=== PATIENT | female | born 1965 | race African-American/Black ===

== ENCOUNTER 2016-06-05 08:34 | Day surgery (SDC) | payer OTHER ==
[~2016-06-05] VITALS: Ht 160 cm; Wt 96.2 kg
[~2016-06-05 08:34] MED LIST: AMLO10TA2 PO; CEFAZOLIN 1GM IVPB FOR OMNI 50 ML IV ONE; FENTANYL PF 100 MCG/2 ML VIAL. IV PRN; IV RINGERS,LACTATED 1000ML 1,000 ML IV SCH; LIDOCAINE 1% 1 ML SYRINGE. ID PRN; LOSA1TAB17 PO; MELO-156 PO; ONDANSETRON PF 4 MG/2 ML VIAL. IV PRN; PROCHLORPERAZINE 10 MG/2 ML VIAL. IV PRN; RANI150T2 PO
[2016-06-05] MEDS ORDERED: ORPH100T PO (09:15)
[2016-06-05] MEDS ORDERED: MIDAZOLAM HCL 2 MG/2 ML VIAL. ONE (09:46)
[2016-06-05] MEDS ORDERED: FENTANYL PF 100 MCG/2 ML VIAL. ONE (09:46)
[2016-06-05] MEDS ORDERED: LIDOCAINE 1% PF 30 ML VIAL. ONE ×2 (09:48→10:14)
--- NOTE | 2016-06-05 10:08 | DISCH ---
DISCHARGE INSTRUCTIONS Condition on Discharge Condition on Discharge: Stable Activity After Discharge Activity Instructions for Disc: Activity as tolerated Bathing Instructions: Shower-keep dressing dry Lifting Instructions after Dis: No heavy lifting, No pulling or pushing, Do not lift >10 pounds Weight Bearing Status after Di: As tolerated Diet after Discharge Diet after Discharge: Regular Wound Incision Care Wound/Incision Care: Ice to area for comfort, Keep wound/cast CDI, Keep wound elevated, Change dressing Contacting the DR. after DC Call your doctor for: Concerns you may have Follow-Up Follow up with: Octavio in 2wks Treatment/Equipment after DC Adaptive Equipment Issued: None MARIA L DENNIS II, MD Jun 05, 2016 10:08
--- NOTE | 2016-06-05 10:09 | PDOC ---
BRIEF OPERATIVE NOTE Date: Jun 05, 2016 Pre-Op Diagnosis R 1st and 3rd TF Post-Op Diagnosis same Procedure Performed Open R 1st and 3rd TF release Surgeon Octavio Anesthesia Type: General MARIA L DENNIS II, MD Jun 05, 2016 10:09
[2016-06-05] MEDS ORDERED: BUPIVACAINE MPF 0.5% 30 ML VIAL. ONE (10:14)
[2016-06-05] MEDS ORDERED: DEXAMETHASONE SOD PHOS 20 MG/5 ML VIAL. ONE (10:18)
[2016-06-05] MEDS ORDERED: ONDANSETRON PF 4 MG/2 ML VIAL. ONE (10:18)
[2016-06-05] MEDS ORDERED: PROPOFOL 20 ML IV ONE (10:18)
[2016-06-05] MEDS ORDERED: LIDOCAINE 2% 100 MG/5 ML DISP.SYRIN. ONE (10:18)
[2016-06-05] MEDS ORDERED: SEVOFLURANE 31 TO 60 MINUTES. IH ONE (10:40)
[2016-06-05] MEDS: FENTANYL PF 100 MCG/2 ML VIAL. IV PRN ×4 (11:01→11:19)
[2016-06-05] MEDS: MORPHINE SULFATE 2 MG/ML DISP.SYRIN. IV PRN ×4 (11:22→12:08)
[2016-06-05] MEDS ORDERED: HYDR-971 PO (11:25)
[2016-06-05] MEDS ORDERED: DOCU-27 PO (11:27)
[2016-06-05] MEDS ORDERED: HYDROCODONE/APAP 5/325MG TABLET. PO PRN (11:30)
[2016-06-05] MEDS ORDERED: OXYCODONE/APAP 5/325 TABLET. PO PRN (12:15)
[2016-06-05 12:34] VITALS: BP 141/88
--- NOTE | 2016-06-05 13:23 | OP ---
DATE OF SURGERY: 06/05/2016 SURGEON: Juan Dennis MD BOLT LOADER: None. ANESTHESIA: General with an LMA. PREOPERATIVE DIAGNOSIS: Right hand first and third trigger finger. POSTOPERATIVE DIAGNOSIS: Right hand first and third trigger finger. PROCEDURE PERFORMED: Open right first and third trigger finger release. COMPLICATIONS: None. ESTIMATED BLOOD LOSS: 5 mL. TOURNIQUET TIME: 18 minutes. REASON FOR PROCEDURE: This is a very pleasant 50-year-old female with painful catching of digits 1 and 3 on her right hand. She had tried corticosteroid injections, which gave her good initial relief, but no long term relief. Therefore, we had discussion of risks, benefits, alternatives of proceeding with the above surgery and she elected to proceed. DESCRIPTION OF PROCEDURE: The patient was greeted in the preoperative area by myself. Correct extremity was marked and verified. She was taken back to the operative suite and antibiotics started en route. Once in the OR, transferred gently supine to the OR table with an arm board attached. She had successful induction of general anesthesia with an LMA, as her preference was to be asleep for the surgery. We then proceeded to prep and drape the right upper extremity after applying a nonsterile tourniquet to her right arm. After prepping and draping, conducted a standard preoperative timeout. I then made a transverse incision over the proximal aspect of her metacarpal head at her third digit and dissected subcutaneous tissue with a tenotomy until identified the A1 jose luis and accounting assistant held Ragnell retractors in place. I then released the A1 jose luis with the tenotomy incisions and then delivered the tendons from the incision with a curved hemostat to ensure accomplished full release. I then directed my attention to the thumb and made a transverse incision again over the base of the metatarsal or metacarpal head and dissected with tenotomy down to the flexor tendon. The digital nerve was several millimeters away. I did identify and protected with my Ragnell retractor throughout this procedure. I did use bipolar cautery to cauterized couple of bleeders. After identifying the jose luis, I incised this with tenotomy incision as well and then again delivered the tendons from the incision to ensure a complete release. After this, I irrigated out the incisions and closed skin with 3-0 nylon in a mattress fashion at both incisions. A Xeroform, sterile gauze, sterile cast padding and Jay wrap were applied to the patient's right hand and wrist. She was then awakened from anesthesia and the tourniquet was let down. She tolerated surgery well. No complications. At the conclusion of surgery, she was transferred gently supine to the hospital recovery room cart and taken to PACU in stable and extubated condition. Postop plan is for to wiggle her fingers frequently keep her and elevated. She will be nonweightbearing. We will see her back in clinic in 2 weeks, sooner should problems arise. JUAN DENNIS MD DR: DANIEL/odessa JOB#: [id number] / [id number]
== END 2016-06-05 13:06 | disposition home or self-care (01) ==
LOC: SURG 08:34
PROVIDERS: ATTEND Orthopaedic Surgery Sports Medicine
DX: M65.311 Trigger thumb, right thumb (principal); M65.331 Trigger finger, right middle finger; I10 Essential (primary) hypertension; Z98.51 Tubal ligation status; Z90.710 Acquired absence of both cervix and uterus
CPT/HCPCS: 26055; J0690; J1100; J2250; J2270; J2405; J2704; J3010; J3490

== ENCOUNTER 2017-09-29 06:24 | Day surgery (SDC) | payer BC, OTHER ==
[2017-09-29] MEDS: IV RINGERS,LACTATED 1000ML 1,000 ML IV (06:59)
[2017-09-29] MEDS ORDERED: fentaNYL PF VIAL 100 MCG/2 ML VIAL IV ×2 (07:00)
[2017-09-29] MEDS ORDERED: LIDOCAINE 1% PF 2 ML VIAL. ID (07:00)
[2017-09-29] MEDS ORDERED: ONDANSETRON PF 4 MG/2 ML VIAL. IV (07:00)
[2017-09-29] MEDS ORDERED: PROCHLORPERAZINE 10 MG/2 ML VIAL. IV (07:00)
[2017-09-29] MEDS ORDERED: KETOROLAC 30 MG/ML INJ FOR OR. INJ (07:02)
[2017-09-29] MEDS ORDERED: DEXAMETHASONE SOD PHOS 20 MG/5 ML VIAL. (07:02)
[2017-09-29] MEDS ORDERED: PROPOFOL 20 ML IV (07:02)
[2017-09-29] MEDS ORDERED: ONDANSETRON PF 4 MG/2 ML VIAL. (07:02)
[2017-09-29] MEDS ORDERED: FAMOTIDINE 20 MG/2 ML VIAL (07:02)
[2017-09-29] MEDS ORDERED: LIDOCAINE 2% PF Vial for OR 5 ML VIAL. (07:02)
[2017-09-29] MEDS ORDERED: MIDAZOLAM HCL/PF 2 MG/2 ML VIAL. (07:03)
[2017-09-29] MEDS ORDERED: ESMOLOL 100 MG/10 ML VIAL. IV (07:40)
[2017-09-29] MEDS: LIDOCAINE 1% PF 30 ML VIAL. (07:47)
[2017-09-29] MEDS: BUPIVACAINE MPF 0.5% 30 ML VIAL. (07:47)
[2017-09-29] MEDS ORDERED: DESFLURANE 31 TO 60 MINUTES IH (08:01)
[2017-09-29] MEDS: HYDROcodone/APAP 5/325MG 1 TAB TABLET PO (09:01)
== END 2017-09-29 09:23 | disposition home or self-care (01) ==
LOC: SURG 06:24
DX: M65.341 Trigger finger, right ring finger (principal); M65.351 Trigger finger, right little finger; I10 Essential (primary) hypertension; K21.9 Gastro-esophageal reflux disease without esophagitis; E66.9 Obesity, unspecified; M17.11 Unilateral primary osteoarthritis, right knee; Z79.1 Long term (current) use of non-steroidal anti-inflammatories (NSAID); Z79.899 Other long term (current) drug therapy; Z98.51 Tubal ligation status; Z90.712 Acquired absence of cervix with remaining uterus; Z98.890 Other specified postprocedural states
CPT/HCPCS: 26055; A7015; J0690; J1100; J1885; J2250; J2405; J2704; J3490; S0028

== ENCOUNTER → 2017-11-05 | Outpatient (CLI) | payer OTHER | END | disposition home or self-care (01) | LOC: KCIC US 15:06 | DX: E04.1 Nontoxic single thyroid nodule (principal); I10 Essential (primary) hypertension; K21.9 Gastro-esophageal reflux disease without esophagitis; E66.9 Obesity, unspecified | CPT/HCPCS: 76536 ==

== ENCOUNTER → 2018-11-04 | Outpatient (CLI) | payer OTHER ==
[2017-09-29 08:37] VITALS: BP 139/64
[~2018-11-04] MED LIST changes: -AMLO10TA2 PO; +AMLO10TA8 PO; -CEFAZOLIN 1GM IVPB FOR OMNI 50 ML IV ONE; +DOCU-109 PO; -FENTANYL PF 100 MCG/2 ML VIAL. IV PRN; +HYDR-3164 PO; -IV RINGERS,LACTATED 1000ML 1,000 ML IV SCH; -LIDOCAINE 1% 1 ML SYRINGE. ID PRN; -LOSA1TAB17 PO; +LOSA1TAB22 PO; -MELO-156 PO; +MELO7.5T29 PO; -ONDANSETRON PF 4 MG/2 ML VIAL. IV PRN; +ORPH100T PO; -PROCHLORPERAZINE 10 MG/2 ML VIAL. IV PRN
--- NOTE | 2018-11-04 14:59 | RAD ---
Indication:Arthritis. TECHNIQUE: 2 views of the bilateral knee COMPARISON:None FINDINGS: Left knee: Moderate medial and mild patellofemoral and lateral joint compartment osteoarthritis. Trace suprapatellar effusion. Right knee: Mild compartmental osteoarthritis. Trace suprapatellar effusion. IMPRESSION: As above. Electronically signed by: Juan Alberto Maravilla DO (11/04/2018 2:56 PM) [facility]
== END | disposition home or self-care (01) ==
LOC: RAD 11:30
PROVIDERS: ATTEND General Practice
DX: Z02.71 Encounter for disability determination (principal); M17.0 Bilateral primary osteoarthritis of knee
CPT/HCPCS: 73560

== ENCOUNTER → 2021-08-01 | Outpatient (CLI) | payer OTHER ==
[2017-09-29 08:37] VITALS: BP 139/64
[~2021-08-01] MED LIST changes: +AMLO-187 PO; -AMLO10TA8 PO; +BUPIVACAINE MPF 0.5% 10 ML VIAL. INT ART ONE; +IOHEXOL 300 MG/ML 50 ML VIAL. INT ART ONE; +LIDOCAINE 1% Multi-Dose 20 ML VIAL. ID ONE; +TRIAMCINOLONE PRES.FREE 40 MG/ML VIAL. INT ART ONE
--- NOTE | 2021-08-03 08:39 | KCIC ---
EXAM: Fluoroscopically guided right glenohumeral joint injection of steroid and anesthetic INDICATION: Chronic shoulder pain COMPARISON: Right shoulder radiograph 07/16/2021 TECHNIQUE/FINDINGS: The purpose of the procedure and risks including infection, bleeding, contrast reaction, and pain wer e discussed with the patient. Informed consent was obtained. A timeout was performed. After obtaining consent, the patient was placed supine on the fluoroscopy table with the right should er externally rotated. The skin overlying the right shoulder was marked, sterilized and draped. Sup erficial and deep soft tissues were anesthetized with 1% lidocaine. Utilizing fluoroscopic guidance, a 22-gauge 3.5" needle was advanced into the joint. Intraarticular position was confirmed with injec tion of a small amount of iodinated contrast. Subsequently, a solution containing the following items was instilled into the joint: 1 mL 1% lidocaine, 4 mL bupivacaine, and 1 mL Kenalog (80 mg/mL). At t he end of the procedure, the needle was removed. The overlying skin was cleansed and covered with a bandaid. The patient tolerated the procedure well and was free of immediate complications. Total fluoroscopic time: 22 seconds. 2 images saved. IMPRESSION: Technically successful right glenohumeral joint injection of steroid and anesthetic. Electronically signed by: Judy Judge MD (08/03/2021 8:37 AM) [id number]
== END | disposition home or self-care (01) ==
LOC: KCIC 08:25
PROVIDERS: ATTEND Orthopaedic Surgery Sports Medicine
DX: M25.511 Pain in right shoulder (principal); G89.29 Other chronic pain; E66.9 Obesity, unspecified; I10 Essential (primary) hypertension; K21.9 Gastro-esophageal reflux disease without esophagitis; M19.90 Unspecified osteoarthritis, unspecified site; Z90.710 Acquired absence of both cervix and uterus; Z98.51 Tubal ligation status; Z98.890 Other specified postprocedural states; Z79.899 Other long term (current) drug therapy; Z88.8 Allergy status to other drugs, medicaments and biological substances
CPT/HCPCS: 20610; 77002; J3301; J3490; Q9967

== ENCOUNTER → 2021-08-21 | Outpatient (CLI) | payer OTHER ==
[2017-09-29 08:37] VITALS: BP 139/64
[~2021-08-21] MED LIST changes: -BUPIVACAINE MPF 0.5% 10 ML VIAL. INT ART ONE; -IOHEXOL 300 MG/ML 50 ML VIAL. INT ART ONE; -LIDOCAINE 1% Multi-Dose 20 ML VIAL. ID ONE; -TRIAMCINOLONE PRES.FREE 40 MG/ML VIAL. INT ART ONE
--- NOTE | 2021-08-22 11:05 | KCIC ---
Bilateral digital screening 2-D and 3-D (digital breast tomosynthesis) mammogram: Reason for examination: Routine screening. Comparison: Mammograms from 09/08/2014. FINDINGS: Breast density: Category B. There are scattered areas of fibroglandular density. No suspicious breast mass, malignant appearing calcifications, or architectural distortion is seen. IMPRESSION: No evidence of malignancy. Assessment: BI-RADS 1. Negative. Recommendation: Routine screening mammograms. The patient will receive a letter with the results in the mail. Patient information will be entered i nto the mammography reminder system with a target recall date for the next mammogram. A reminder jean-pierre er will be generated. Electronically signed by: Leyla Alarcon MD (08/22/2021 11:02 AM) [id number]
== END ==
LOC: KCIC MAMMO 15:06
PROVIDERS: ATTEND Plastic Surgery
DX: Z12.31 Encounter for screening mammogram for malignant neoplasm of breast (principal)
CPT/HCPCS: 77063; 77067